=== PATIENT | male | born 1960 | race Caucasian/White ===

== ENCOUNTER 2016-08-02 13:14 | Emergency (ER) | payer OTHER ==
[~2016-08-02] VITALS: Ht 177.8 cm; Wt 71.0 kg
[~2016-08-02 13:14] MED LIST: ATENOLOL25 MG PO; HYDROCHLORO25 MG/TAB PO; PREVACID30 M2 PO; ZOFRAN ODT4 MG PO; ZPAK PO
[2016-08-02 14:40] LABS: HEMATOCRIT 40.6 % (39.0-50.0); HEMOGLOBIN 14.5 g/dl (14.0-18.0); MEAN CELL VOLUME 97.8 fL CALC (80.0-100.0); MEAN CORPUSCULAR HGB 34.9 pG CALC (26.0-32.0); RED BLOOD COUNT 4.15 mill/uL (4.70-6.10)
[2016-08-02 14:41] LABS: IMMATURE GRANULOCYTES 1.6 % (0.0-1.0); MEAN CORPUSCULAR HGB CONC 35.7 g/L CALC (32.0-36.0); NEUT# 6.41 thou/uL (1.82-7.42); RED CELL DISTRI WIDTH 12.5 % (11.5-15.5)
[2016-08-02 14:55] LABS: BUN 2 mg/dL (9-20); BUN/CREATININE RATIO 3 (12-20 (CALC)); CREATININE 0.6 mg/dL (0.7-1.3); GFR > 60 ML/MIN (>=60 (CALC)); GFR FOR AFR.AMER. > 60 ML/MIN (>=60 (CALC)); GLUCOSE 90 mg/dL (75-110); SODIUM 136 mmol/l (137-146)
[2016-08-02 14:55] LABS: URINE BILIRUBIN - DIPSTICK NEGATIVE (NEGATIVE); URINE BLOOD DIPSTICK NEGATIVE (NEGATIVE); URINE CLARITY CLEAR; URINE COLOR YELLOW; URINE GLUCOSE - DIPSTICK NEGATIVE (NEGATIVE); URINE KETONE NEGATIVE (NEGATIVE); URINE LEUK ESTERASE NEGATIVE (NEGATIVE); URINE NITRITE - DIPSTICK NEGATIVE (Negative); URINE PH 6.5 (4.5-8.0); URINE PROTEIN - DIPSTICK NEGATIVE (NEG-TRACE); URINE SPECIFIC GRAVITY <=1.005; URINE UROBILINOGEN - DIPSTICK 0.2 E.U./dL (0.2)
[2016-08-02 14:56] LABS: ALBUMIN 4.3 g/dL (3.2-5.0); ALKALINE PHOSPHATASE 157 u/l (38-126); ANION GAP 19 (6-22 (CALC)); BILIRUBIN, TOTAL 0.8 mg/dL (0.0-1.4); CALCIUM 9.1 mg/dL (8.4-10.2); CARBON DIOXIDE 25 mmol/l (22-30); CHLORIDE 96 mmol/l (95-108); ETHYL ALCOHOL 216 mg/dl (0-30); POTASSIUM 3.8 mmol/l (3.5-5.1); SGOT/AST 204 u/l (17-59); SGPT/ALT 71 u/l (21-72); TOTAL PROTEIN 7.8 g/dL (6.3-8.2)
[2016-08-02 14:58] LABS: COCAINE NEGATIVE (NEGATIVE); METHADONE NEGATIVE (NEGATIVE); TETRAHYDROCANNABIONOL NEGATIVE (NEGATIVE)
[2016-08-02 14:59] LABS: BARBITURATES NEGATIVE (NEGATIVE); OXCYCODONE NEGATIVE (NEGATIVE); TRICYLIC ANTIDEPRESSANTS NEGATIVE (NEGATIVE)
[2016-08-02] MEDS ORDERED: NAPROSYN500 MG PO (15:41)
[2016-08-02] MEDS ORDERED: LOMOTIL2.5 MG PO (15:41)
[2016-08-02 15:47] VITALS: BP 138/83
== END 2016-08-02 15:53 | disposition home or self-care (01) | DRG 392 ==
LOC: ED 13:14
PROVIDERS: Emergency Medicine
DX: R19.7 Diarrhea, unspecified (principal); F31.9 Bipolar disorder, unspecified; M79.1 Myalgia; F10.10 Alcohol abuse, uncomplicated; F43.10 Post-traumatic stress disorder, unspecified; F41.9 Anxiety disorder, unspecified; F17.210 Nicotine dependence, cigarettes, uncomplicated

== ENCOUNTER 2017-07-04 22:14 | Emergency (ER) | payer OTHER ==
[~2017-07-04] VITALS: Ht 177.8 cm; Wt 79.8 kg
[~2017-07-04 22:14] MED LIST changes: +LOMOTIL2.5 MG PO; +NAPROSYN500 MG PO
[2017-07-05 00:35] LABS: IMMATURE GRANULOCYTES 0.8 % (0.0-1.0); MEAN CELL VOLUME 100.3 fL CALC (80.0-100.0); MEAN CORPUSCULAR HGB 35.8 pG CALC (26.0-32.0); MEAN CORPUSCULAR HGB CONC 35.7 g/L CALC (32.0-36.0); NEUT# 11.51 thou/uL (1.82-7.42); RED BLOOD COUNT 3.44 mill/uL (4.70-6.10); RED CELL DISTRI WIDTH 15.6 % (11.5-15.5)
[2017-07-05 00:37] LABS: HEMATOCRIT 34.5 % (39.0-50.0)
[2017-07-05 00:41] LABS: ACT PARTIAL THROMBO TIME 34.1 SECONDS (20.0-32.5)
[2017-07-05 00:50] LABS: INTERNATIONAL NORMALIZED RATIO 1.9 RATIO (0.7-1.3); PROTHROMBIN TIME 21.2 SECONDS (9.0-12.5)
[2017-07-05 01:21] LABS: ALKALINE PHOSPHATASE 208 u/l (38-126); AMYLASE < 30 u/l (30-110); BUN 7 mg/dL (9-20); BUN/CREATININE RATIO 11 (12-20 (CALC)); CHLORIDE 89 mmol/l (95-108); CREATININE 0.7 mg/dL (0.7-1.3); GFR > 60 ML/MIN (>=60 (CALC)); GFR FOR AFR.AMER. > 60 ML/MIN (>=60 (CALC)); LIPASE 81 u/l (23-300); SGOT/AST 170 u/l (17-59); SGPT/ALT 65 u/l (21-72); SODIUM 131 mmol/l (137-146); TOTAL PROTEIN 6.3 g/dL (6.3-8.2)
[2017-07-05 01:22] LABS: ALBUMIN 2.7 g/dL (3.2-5.0); ANION GAP 14 (6-22 (CALC)); CARBON DIOXIDE 31 mmol/l (22-30); POTASSIUM 2.7 mmol/l (3.5-5.1)
[2017-07-05 01:25] LABS: HEMOGLOBIN 12.3 g/dl (14.0-18.0)
[2017-07-05 01:33] LABS: MYOGLOBIN 418 ng/mL (0 - 121)
[2017-07-05 01:48] LABS: URINE BLOOD DIPSTICK NEGATIVE (NEGATIVE); URINE COLOR YELLOW; URINE GLUCOSE - DIPSTICK NEGATIVE (NEGATIVE); URINE KETONE 15 mg/dL (NEGATIVE); URINE LEUK ESTERASE NEGATIVE (NEGATIVE); URINE NITRITE - DIPSTICK NEGATIVE (Negative); URINE PROTEIN - DIPSTICK NEGATIVE (NEG-TRACE); URINE SPECIFIC GRAVITY <=1.005
[2017-07-05 01:52] LABS: URINE BILIRUBIN - DIPSTICK SMALL (NEGATIVE); URINE CLARITY CLEAR
[2017-07-05 03:15] VITALS: BP 113/75
== END 2017-07-05 03:15 | disposition left against medical advice (07) | DRG 433 ==
LOC: ED 22:14
PROVIDERS: Emergency Medicine
DX: K74.60 Unspecified cirrhosis of liver (principal); R18.8 Other ascites; J90 Pleural effusion, not elsewhere classified; E87.6 Hypokalemia; Z91.19 Patient's noncompliance with other medical treatment and regimen; R94.31 Abnormal electrocardiogram [ECG] [EKG]; R06.02 Shortness of breath; R22.43 Localized swelling, mass and lump, lower limb, bilateral; F17.210 Nicotine dependence, cigarettes, uncomplicated; Z72.89 Other problems related to lifestyle

== ENCOUNTER 2017-09-01 08:26 | Emergency (ER) | payer OTHER ==
[~2017-09-01] VITALS: Ht 177.8 cm; Wt 64.0 kg
[2017-09-01 09:25] LABS: ACT PARTIAL THROMBO TIME 36.2 SECONDS (20.0-32.5); INTERNATIONAL NORMALIZED RATIO 1.4 RATIO (0.7-1.3); PROTHROMBIN TIME 15.9 SECONDS (9.0-12.5)
[2017-09-01 09:28] LABS: ETHYL ALCOHOL 0 mg/dl (0-30)
[2017-09-01 09:57] LABS: BARBITURATES NEGATIVE (NEGATIVE); COCAINE NEGATIVE (NEGATIVE); METHADONE NEGATIVE (NEGATIVE); TETRAHYDROCANNABIONOL NEGATIVE (NEGATIVE); TRICYLIC ANTIDEPRESSANTS POSITIVE (NEGATIVE)
[2017-09-01 09:58] LABS: OXCYCODONE POSITIVE (NEGATIVE)
[2017-09-01 11:03] LABS: IMMATURE GRANULOCYTES 0.4 % (0.0-1.0); MEAN CORPUSCULAR HGB 29.1 pG CALC (26.0-32.0); MEAN CORPUSCULAR HGB CONC 36.1 g/L CALC (32.0-36.0); NEUT# 9.65 thou/uL (1.82-7.42); RED BLOOD COUNT 2.85 mill/uL (4.70-6.10); RED CELL DISTRI WIDTH 15.9 % (11.5-15.5)
[2017-09-01 11:04] LABS: HEMOGLOBIN 8.3 g/dl (14.0-18.0); MEAN CELL VOLUME 80.7 fL CALC (80.0-100.0)
[2017-09-01 11:09] LABS: ALBUMIN 2.5 g/dL (3.2-5.0); BILIRUBIN, TOTAL 1.1 mg/dL (0.0-1.4); TOTAL PROTEIN 6.3 g/dL (6.3-8.2)
[2017-09-01 11:13] LABS: CREATININE 6.4 mg/dL (0.7-1.3)
[2017-09-01 11:15] LABS: POTASSIUM 6.1 mmol/l (3.5-5.1)
[2017-09-01] MEDS ORDERED: PROAMATINE5 MG PO (11:37)
[2017-09-01] MEDS ORDERED: PRILOSEC20 MG PO (11:37)
[2017-09-01] MEDS ORDERED: FUROSEMIDE20 MG PO (11:39)
[2017-09-01] MEDS ORDERED: SPIRONOLACT25 MG PO (11:39)
[2017-09-01] MEDS ORDERED: HYDROXYZINE HCL25 M1 PO (11:41)
[2017-09-01] MEDS ORDERED: GENERLAC10 GM/15 M PO (11:42)
[2017-09-01 14:33] VITALS: BP 88/50
== END 2017-09-01 14:16 | disposition short-term general hospital (02) | DRG 682 ==
LOC: ED 08:26
PROVIDERS: Emergency Medicine
PROC: 0T9B70Z Drainage of Bladder with Drainage Device, Via Natural or Artificial Opening (ICD-10-PCS; principal; 2017-09-01)
DX: N17.9 Acute kidney failure, unspecified (principal); K76.7 Hepatorenal syndrome; D68.9 Coagulation defect, unspecified; E87.1 Hypo-osmolality and hyponatremia; R18.8 Other ascites; R94.31 Abnormal electrocardiogram [ECG] [EKG]